=== PATIENT | male | born 1965 | race Caucasian/White ===

== ENCOUNTER 2017-01-29 08:41 | Observation (INO) ==
[2017-01-29 09:25] LABS: Basophils # 0.1 K/mcL (0.0-0.2); Basophils % 0.8 %; Eosinophils # 0.2 K/mcL (0.0-0.6); Eosinophils % 2.9 %; Hematocrit 42.8 % (37.5-50.1); Hemoglobin 14.6 g/dL (12.9-16.9); Immature Granulocytes % 0.5 % (0-4); Lymphocytes % 25.5 %; Mean Corpuscular HGB Conc 34.1 g/dL (31.6-35.5); Mean Corpuscular Hemoglobin 29.5 pg (28.0-33.3); Mean Corpuscular Volume 86.5 fL (83.0-100.0); Mean Platelet Volume 11.1 fL (9.4-12.4); Monocytes # 0.6 K/mcL (0.0-1.3); Monocytes % 7.7 %; Neutrophils # 4.9 K/mcL (1.6-8.9); Platelet Count 252 K/mcL (140-400); Red Blood Count 4.95 M/mcL (4.19-5.50); Red Cell Distribution Width 13.4 % (11.5-14.5); Segmented Neutrophils % 62.6 %
--- NOTE | 2017-01-29 09:28 | Emergency Department Note ---
Disposition Clinical Impression: Hematochezia Disposition: Admitted As Inpatient General Adult HPI - General Chief complaint: ED GI Bleed Stated complaint: Bloody Stool Time Seen by Provider: 01/29/17 08:48 Source: patient, family Limitations: no limitations Nursing Notes Reviewed: Yes Vital Signs Reviewed: Yes - History of Present Illness Pain Scale: 0 - Related Data Home Medications Medication Instructions Recorded Confirmed Allopurinol [Zyloprim] 300 mg PO QAM 07/19/15 01/29/17 Aspirin Enteric Coated [Aspirin EC] 81 mg PO QAM 07/19/15 01/29/17 Gemfibrozil [Lopid] 600 mg PO BID 07/19/15 01/29/17 Lisinopril [Zestril] 20 mg PO BID 07/19/15 01/29/17 glyBURIDE [GlyBURIDE] 2.5 mg PO HS 07/19/15 01/29/17 Warfarin [Coumadin] 10 mg PO SUMOTUWEFRSA 12/26/15 01/29/17 Warfarin Sodium 15 mg PO TH 01/15/16 01/29/17 Gabapentin [Neurontin] 300 mg PO TID 03/01/16 01/29/17 Enoxaparin [Lovenox] 100 mg SQ BID 01/15/17 01/29/17 Metformin HCl [Glucophage] 1,000 mg PO BID 01/29/17 01/29/17 Pantoprazole Sodium [Protonix] 40 mg PO DAILY 01/29/17 01/29/17 Previous Rx's Medication Instructions Recorded Docusate [Colace] 100 mg PO BID #30 capsule 01/15/17 Allergies Allergy/AdvReac Type Severity Reaction Status Date / Time Penicillins Allergy See Verified 01/29/17 13:14 Comments Past Medical History - Past Medical History Medical history: Reports: atrial fibrillation, diabetes, hyperlipidemia, hypertension, myocardial infarction Surgical history: Reports: other Psychiatric history: Reports: no psych history - Social History Smoking Status: Current every day smoker Smokeless Tobacco Status: No Alcohol use: Reports: rarely Drug use: Reports: none Physical Exam - General Limitations: no limitations General appearance: alert, in no apparent distress Course Vital Signs Temperature 97.7 F 01/29/17 08:42 Pulse Rate 70 01/29/17 08:42 Respiratory Rate 16 01/29/17 08:42 Blood Pressure 162/95 01/29/17 08:42 O2 Sat by Pulse Oximetry 97 01/29/17 08:42 Temperature 97.4 F L 01/29/17 15:13 Pulse Rate 58 01/29/17 15:13 Respiratory Rate 18 01/29/17 15:13 Blood Pressure 134/95 01/29/17 15:13 O2 Sat by Pulse Oximetry 97 01/29/17 15:15 Oxygen Delivery Oxygen Delivery Room Air Medical Decision Making - MDM Narrative Medical decision making narrative: I examined this patient and my medical decision-making was reviewed with the TRIAL PARALEGAL/PA/Advanced Practice Nurse/Resident Physician. I agree with the documented findings, disposition and treatment plan as described except to the extent set forth below. Patient was seen and evaluated by Dr. Florence and myself, I agree with his evaluation and management plan, I supervised the care of the patient and his stay. Patient presents today with GI bleeding he studies had lower GI bleed with blood and he noticed in the toilet been going on for 5 times. It colonoscopy done on the was done by Dr. Mcclendon they removed a polyp according to his records. He also had a cholecystectomy. He is on Coumadin had been bridged with Lovenox while he was off Coumadin during these procedures. And is now back on Coumadin. Check lab work on him, and then speak with GI he has nonsurgical abdomen so do not think he needs imaged at this time and then we will discuss best management for this bleeding he has. He is in agreement with this plan. 0907 hrs.: Patient had an EKG performed, shows a sinus rhythm, rate is 65, QRS is 101, QTC is 398, no signs of ischemia, risks and EKG from November and shows no changes except for rate. 1100 hrs.: Patient is guaiac positive grossly. Regarding a CT of the abdomen that we will talk about admission to the hospital. He is in agreement this plan. Abdomen/Pelvis CT 01/29/17 12:30 IMPRESSION: 1. No CT findings to account for rectal bleeding 2. Status post cholecystectomy with minimal residual postoperative changes 3. Hepatic steatosis 4. Nonobstructing bilateral nephrolithiasis D/ / Manjinder Wei MD / Manjinder Wei MD Interpreting Provider: Manjinder Wei MD 1338 hrs.: We will go ahead and bring him into the hospital now that his CT is back. Patient stable at this time. - Lab Data Result diagrams: 01/29/17 09:16 01/29/17 09:16 Lab Results 01/29/17 01/29/17 01/29/17 Range/Units 09:16 09:16 09:16 WBC 7.8 (4.3-11.1) K/mcL RBC 4.95 (4.19-5.50) M/mcL Hgb 14.6 (12.9-16.9) g/dL Hct 42.8 (37.5-50.1) % MCV 86.5 (83.0-100.0) fL MCH 29.5 (28.0-33.3) pg MCHC 34.1 (31.6-35.5) g/dL RDW 13.4 (11.5-14.5) % Plt Count 252 (140-400) K/mcL MPV 11.1 (9.4-12.4) fL Immature Gran % 0.5 (0-4) % Seg Neutrophils % 62.6 % Lymphocytes % 25.5 % Monocytes % 7.7 % Eosinophils % 2.9 % Basophils % 0.8 % Neutrophils # 4.9 (1.6-8.9) K/mcL Lymphocytes # 2.0 (0.6-4.6) K/mcL Monocytes # 0.6 (0.0-1.3) K/mcL Eosinophils # 0.2 (0.0-0.6) K/mcL Basophils # 0.1 (0.0-0.2) K/mcL PT 15.8 H (9.4-12.1) Seconds INR 1.5 APTT 43.8 H (26.0-36.0) Seconds Sodium (136-145) mEq/L Potassium (3.5-4.5) mEq/L Chloride (98-109) mEq/L Carbon Dioxide (19-29) mEq/L BUN (8-26) mg/dL Creatinine (0.72-1.25) mg/dL Est GFR ( Amer) (> 60) Est GFR (Non-Af Amer) (> 60) BUN/Creatinine Ratio (6-26) Glucose (70-99) mg/dL Calculated Osmolality (280-300) Calcium (8.6-10.8) mg/dL Troponin I 0.00 (0-0.03) ng/mL Stool Occult Blood (Negative) Blood Type Antibody Screen 01/29/17 01/29/17 01/29/17 Range/Units 09:16 09:16 11:15 WBC (4.3-11.1) K/mcL RBC (4.19-5.50) M/mcL Hgb (12.9-16.9) g/dL Hct (37.5-50.1) % MCV (83.0-100.0) fL MCH (28.0-33.3) pg MCHC (31.6-35.5) g/dL RDW (11.5-14.5) % Plt Count (140-400) K/mcL MPV (9.4-12.4) fL Immature Gran % (0-4) % Seg Neutrophils % % Lymphocytes % % Monocytes % % Eosinophils % % Basophils % % Neutrophils # (1.6-8.9) K/mcL Lymphocytes # (0.6-4.6) K/mcL Monocytes # (0.0-1.3) K/mcL Eosinophils # (0.0-0.6) K/mcL Basophils # (0.0-0.2) K/mcL PT (9.4-12.1) Seconds INR APTT (26.0-36.0) Seconds Sodium 137 (136-145) mEq/L Potassium 4.5 (3.5-4.5) mEq/L Chloride 105 (98-109) mEq/L Carbon Dioxide 22 (19-29) mEq/L BUN 21 (8-26) mg/dL Creatinine 0.74 (0.72-1.25) mg/dL Est GFR ( Amer) > 60 (> 60) Est GFR (Non-Af Amer) > 60 (> 60) BUN/Creatinine Ratio 28 H (6-26) Glucose 123 H (70-99) mg/dL Calculated Osmolality 288 (280-300) Calcium 9.7 (8.6-10.8) mg/dL Troponin I (0-0.03) ng/mL Stool Occult Blood Positive A (Negative) Blood Type O POSITIVE Antibody Screen NEGATIVE
[2017-01-29 09:29] LABS: INR 1.5; Prothrombin Time 15.8 Seconds (9.4-12.1)
[2017-01-29 09:31] LABS: Activated Partial Thrombo Time 43.8 Seconds (26.0-36.0)
[2017-01-29 09:39] LABS: BUN/Creatinine Ratio 28 (6-26); Blood Urea Nitrogen 21 mg/dL (8-26); Calcium 9.7 mg/dL (8.6-10.8); Carbon Dioxide 22 mEq/L (19-29); Chloride 105 mEq/L (98-109); Glucose 123 mg/dL (70-99); Osmolality,Calculated 288 (280-300); Potassium 4.5 mEq/L (3.5-4.5); Sodium 137 mEq/L (136-145); eGFR For African Americans > 60 (> 60); eGFR For Non-African Americans > 60 (> 60)
--- NOTE | 2017-01-29 09:49 | Emergency Department Note ---
Disposition Clinical Impression: Hematochezia Disposition: Admitted As Inpatient Referrals: Jakob Cason MD [Primary Care Provider] - Forms: ED Satisfaction Letter GI Bleed HPI - General Chief complaint: ED GI Bleed Stated complaint: Bloody Stool Time Seen by Provider: 01/29/17 08:48 Source: patient, family Limitations: no limitations - History of Present Illness HPI Narrative: Mr. Garibay, a 51yo male, presents from home by POV with CC: blood in bowel movement. Hx A. Fib s/p ablation x2, on coumadin which was discontinued for cholecystectomy in the beginning of the month and colonoscopy this week; was on lovenox in the interim. Colonoscopy last Sun. Sun restarted coumadin. Yest AM lower abdominal pain - upset stomach, nausea. Last night beginning appx midnight had 5x bright red stools with clotting with continued abdominal pain with nausea. Patient admits to mild lightheadedness with standing up and mild generalized fatigue. Denies chest pain, palpitations, weakness, chest pain, dizziness. PMH: a. fib PSH: ablation x2 Habits: Currently smoker - Related Data Home Medications Medication Instructions Recorded Confirmed Allopurinol [Zyloprim] 300 mg PO QAM 07/19/15 01/29/17 Aspirin Enteric Coated [Aspirin EC] 81 mg PO QAM 07/19/15 01/29/17 Gemfibrozil [Lopid] 600 mg PO BID 07/19/15 01/29/17 Lisinopril [Zestril] 20 mg PO BID 07/19/15 01/29/17 glyBURIDE [GlyBURIDE] 2.5 mg PO HS 07/19/15 01/29/17 Warfarin [Coumadin] 10 mg PO SUMOTUWEFRSA 12/26/15 01/29/17 Warfarin Sodium 15 mg PO TH 01/15/16 01/29/17 Gabapentin [Neurontin] 300 mg PO TID 03/01/16 01/29/17 Enoxaparin [Lovenox] 100 mg SQ BID 01/15/17 01/29/17 Metformin HCl [Glucophage] 1,000 mg PO BID 01/29/17 01/29/17 Pantoprazole Sodium [Protonix] 40 mg PO DAILY 01/29/17 01/29/17 Previous Rx's Medication Instructions Recorded Docusate [Colace] 100 mg PO BID #30 capsule 01/15/17 Allergies Allergy/AdvReac Type Severity Reaction Status Date / Time Penicillins Allergy See Verified 01/29/17 13:14 Comments All systems ED: reviewed and negative except as stated. Constitutional: Denies: fever, chills Eyes: Denies: vision change Cardiovascular: Denies: chest pain, palpitations, dyspnea on exertion, edema, syncope Respiratory: Denies: cough, dyspnea, wheezes, hemoptysis Gastrointestinal: Reports: nausea, diarrhea, hematochezia. Denies: abdominal pain, vomiting, constipation, hematemesis, melena Genitourinary: Denies: urgency, dysuria Neurological: Reports: as per HPI. Denies: headache, weakness, numbness, paresthesias, confusion, vertigo Hematological/Lymphatic: Reports: easy bleeding Past Medical History - Past Medical History Medical history: Reports: atrial fibrillation, diabetes, hyperlipidemia, hypertension, myocardial infarction Surgical history: Reports: other Psychiatric history: Reports: no psych history - Social History Smoking Status: Current every day smoker Smokeless Tobacco Status: No Alcohol use: Reports: rarely Drug use: Reports: none Physical Exam Vital signs reviewed and unremarkable. General: Patient is alert, oriented, and in no acute distress. HEENT: No facial asymmetry. Head is normocephalic and atraumatic. Trachea midline. Cardiovascular: Heart regular rate and rhythm without clicks, rubs, gallops, or murmurs. No JVD. PMI nondisplaced. No pedal edema. Bilateral radial posterior tibial pulses equal and 2/4. Respiratory: Symmetric chest rise with good respiratory effort. Bilateral breath sounds are clear without wheezing, crackles, or rhonchi. Abdomen: Bowel sounds present normoactive x-4 quadrants. Abdomen is soft, nondistended, and mildly diffusely tender. No rebound tenderness. No organomegaly noted. Rectal: Grossly positive red stool covering gloved finger. No hemorrhoids palpated. Psych: Patient's affect is appropriate for situation. - General Limitations: no limitations General appearance: alert, in no apparent distress Course Course Narrative: Patient denies need for analgesia this point; is pain-free until he performed an abdominal exam. Hb Hct stable and normal. VS stable. EKG normal sinus rhythm. Pertinent red blood per rectum on abdominal exam. Updated the patient on lab results and rectal exam. CT pending. Spoke with Dr. Mcclendon who is where the patient and will follow should he require hospital admission. CT of the pelvis unremarkable for free abdominal fluid or bowel perforation. Abdomen/Pelvis CT 01/29/17 12:30 IMPRESSION: 1. No CT findings to account for rectal bleeding 2. Status post cholecystectomy with minimal residual postoperative changes 3. Hepatic steatosis 4. Nonobstructing bilateral nephrolithiasis D/ / Manjinder Wei MD / Manjinder Wei MD Interpreting Provider: Manjinder Wei MD Spoke with the patient CT results. He agrees for admission. We will admit the patient to the service of Dr. Skinner; he agrees to accept the patient. Vital Signs Temperature 97.7 F 01/29/17 08:42 Pulse Rate 70 01/29/17 08:42 Respiratory Rate 16 01/29/17 08:42 Blood Pressure 162/95 01/29/17 08:42 O2 Sat by Pulse Oximetry 97 01/29/17 08:42 Temperature 97.7 F 01/29/17 08:42 Pulse Rate 62 01/29/17 14:17 Respiratory Rate 16 01/29/17 14:17 Blood Pressure 146/103 01/29/17 14:17 O2 Sat by Pulse Oximetry 97 01/29/17 14:17 Oxygen Delivery Oxygen Delivery Room Air GI Bleed - Lab Data Result diagrams: 01/29/17 09:16 01/29/17 09:16 Lab Results 01/29/17 01/29/17 01/29/17 Range/Units 09:16 09:16 09:16 WBC 7.8 (4.3-11.1) K/mcL RBC 4.95 (4.19-5.50) M/mcL Hgb 14.6 (12.9-16.9) g/dL Hct 42.8 (37.5-50.1) % MCV 86.5 (83.0-100.0) fL MCH 29.5 (28.0-33.3) pg MCHC 34.1 (31.6-35.5) g/dL RDW 13.4 (11.5-14.5) % Plt Count 252 (140-400) K/mcL MPV 11.1 (9.4-12.4) fL Immature Gran % 0.5 (0-4) % Seg Neutrophils % 62.6 % Lymphocytes % 25.5 % Monocytes % 7.7 % Eosinophils % 2.9 % Basophils % 0.8 % Neutrophils # 4.9 (1.6-8.9) K/mcL Lymphocytes # 2.0 (0.6-4.6) K/mcL Monocytes # 0.6 (0.0-1.3) K/mcL Eosinophils # 0.2 (0.0-0.6) K/mcL Basophils # 0.1 (0.0-0.2) K/mcL PT 15.8 H (9.4-12.1) Seconds INR 1.5 APTT 43.8 H (26.0-36.0) Seconds Sodium (136-145) mEq/L Potassium (3.5-4.5) mEq/L Chloride (98-109) mEq/L Carbon Dioxide (19-29) mEq/L BUN (8-26) mg/dL Creatinine (0.72-1.25) mg/dL Est GFR ( Amer) (> 60) Est GFR (Non-Af Amer) (> 60) BUN/Creatinine Ratio (6-26) Glucose (70-99) mg/dL Calculated Osmolality (280-300) Calcium (8.6-10.8) mg/dL Troponin I 0.00 (0-0.03) ng/mL Stool Occult Blood (Negative) Blood Type Antibody Screen 01/29/17 01/29/17 01/29/17 Range/Units 09:16 09:16 11:15 WBC (4.3-11.1) K/mcL RBC (4.19-5.50) M/mcL Hgb (12.9-16.9) g/dL Hct (37.5-50.1) % MCV (83.0-100.0) fL MCH (28.0-33.3) pg MCHC (31.6-35.5) g/dL RDW (11.5-14.5) % Plt Count (140-400) K/mcL MPV (9.4-12.4) fL Immature Gran % (0-4) % Seg Neutrophils % % Lymphocytes % % Monocytes % % Eosinophils % % Basophils % % Neutrophils # (1.6-8.9) K/mcL Lymphocytes # (0.6-4.6) K/mcL Monocytes # (0.0-1.3) K/mcL Eosinophils # (0.0-0.6) K/mcL Basophils # (0.0-0.2) K/mcL PT (9.4-12.1) Seconds INR APTT (26.0-36.0) Seconds Sodium 137 (136-145) mEq/L Potassium 4.5 (3.5-4.5) mEq/L Chloride 105 (98-109) mEq/L Carbon Dioxide 22 (19-29) mEq/L BUN 21 (8-26) mg/dL Creatinine 0.74 (0.72-1.25) mg/dL Est GFR ( Amer) > 60 (> 60) Est GFR (Non-Af Amer) > 60 (> 60) BUN/Creatinine Ratio 28 H (6-26) Glucose 123 H (70-99) mg/dL Calculated Osmolality 288 (280-300) Calcium 9.7 (8.6-10.8) mg/dL Troponin I (0-0.03) ng/mL Stool Occult Blood Positive A (Negative) Blood Type O POSITIVE Antibody Screen NEGATIVE
[2017-01-29] MEDS ORDERED: Acetaminophen 325 MG TABLET PO PRN (14:39)
[2017-01-29] MEDS ORDERED: Naloxone 0.4 MG/ML INJ IVP PRN (14:39)
--- NOTE | 2017-01-29 14:52 | Internal Med History&Physical ---
Date of Encounter: 01/29/17 Time of Encounter: 14:30 Assessment and Plan (1) Hematochezia Current visit: Yes Status: Acute Patient with acute bright red bleeding per rectum. Monitor blood counts. Consult GI. Moderate risk for complications. Underwent recent colonoscopy. We will place on PPI. Clear liquid diet only. (2) Atrial fibrillation Current visit: No Status: Resolved A. fib status post ablation. In sinus rhythm. Was being anticoagulated with Coumadin and being bridged with Lovenox. Urine had been stopped earlier this month for cholecystectomy and then patient underwent colonoscopy last week. He resumed Coumadin 2 days back. Qualifiers: Atrial fibrillation type: unspecified Qualified Code(s): I48.91 - Unspecified atrial fibrillation (3) DM (diabetes mellitus) Current visit: Yes Status: Chronic Monitor blood sugars. Sliding scale insulin. Qualifiers: Diabetes mellitus type: type 2 Diabetes mellitus complication status: without complication Diabetes mellitus shelter insulin use: without shelter use Qualified Code(s): E11.9 - Type 2 diabetes mellitus without complications (4) HLD (hyperlipidemia) Current visit: No Status: Chronic Continue statin. Qualifiers: Hyperlipidemia type: mixed hyperlipidemia Qualified Code(s): E78.2 - Mixed hyperlipidemia (5) HTN (hypertension) Current visit: Yes Status: Chronic Monitor blood pressure. Resume home medications. Qualifiers: Hypertension type: essential hypertension Qualified Code(s): I10 - Essential (primary) hypertension Internal Medicine - H&P: HPI Chief complaint: GI bleed Admitted From: Emergency Dept Plans for Post Hospital Care: Home History of present illness: Mr. Garibay is a 51 year old male patient with history of essential hypertension and hyperlipidemia, diabetes mellitus type 2, A. fib status post ablation on anticoagulation presented to the ER with episodes of bright red bleeding per rectum that began last night. Patient has had about 5 episodes so far. He has some cramping in his lower abdomen associated with it. He has not had this issue before. Patient is on Coumadin and is currently being bridged with Lovenox. He underwent a colonoscopy last week and a 10 mm polyp was resected. No active bleeding was identified. Patient also had gastric ulcers which were not bleeding. Denies any dizziness or lightheadedness. No palpitations. Patient has been in sinus rhythm since his ablation done last year. Past Med Surg Social Fam HX - Past Medical History Attestation: Yes The following information was validated with the patient. Source: patient Medical history: atrial fibrillation, diabetes, hyperlipidemia, hypertension, myocardial infarction Psychiatric history: no psych history - Past Surgical History Surgical History: other - Social History Smoking Status: Current every day smoker Smokeless Tobacco Status: No Alcohol use: rarely Drug use: none - Family History Mother Living Status: Hx Family Cardiac Disorders: Yes Hx Family Neurologic Disorders: Yes (CVA) Internal Medicine - H&P: Meds Allopurinol [Zyloprim] 300 mg PO QAM 07/19/15 [History] Aspirin Enteric Coated [Aspirin EC] 81 mg PO QAM 07/19/15 [History] Gemfibrozil [Lopid] 600 mg PO BID 07/19/15 [History] Lisinopril [Zestril] 20 mg PO BID 07/19/15 [History] glyBURIDE [GlyBURIDE] 2.5 mg PO HS 07/19/15 [History] Warfarin [Coumadin] 10 mg PO SUMOTUWEFRSA 12/26/15 [History] Warfarin Sodium 15 mg PO TH 01/15/16 [History] Gabapentin [Neurontin] 300 mg PO TID 03/01/16 [History] Docusate [Colace] 100 mg PO BID #30 capsule 01/15/17 [Rx] Enoxaparin [Lovenox] 100 mg SQ BID 01/15/17 [History] Metformin HCl [Glucophage] 1,000 mg PO BID 01/29/17 [History] Pantoprazole Sodium [Protonix] 40 mg PO DAILY 01/29/17 [History] Allergies Penicillins Allergy (Verified 01/29/17 13:14) See Comments PATIENT STATES HE IS UNSURE OF THE REACTION AND THAT IT IS A CHILDHOOD ALLERGY * All Systems PM: A 10-system review of systems was performed and is negative for pertinent findings except as documented above in the HPI. - Constitutional Constitutional: no chills, no fever(s), no night sweats - EENT Eyes: no change in vision, no discharge, no pain, no photophobia Ears: no ear discharge, no ear pain, no tinnitus Nose, mouth and throat: no dysphagia, no nasal discharge, no neck pain, no sore throat - Cardiovascular Cardiovascular ROS IM: no chest pain, no diaphoresis, no dyspnea, no lightheadedness, no palpitations, no syncope - Respiratory Respiratory: no cough, no dyspnea, no wheezing, no excessive phlegm production - Gastrointestinal Gastrointestinal: cramping, hematochezia - Musculoskeletal Musculoskeletal ROS IM: no numbness, no tingling - Integumentary Integumentary IM: no rash, no unusual bruising - Neurological Neurological ROS: no confusion, no convulsions, no focal weakness, no numbness, no tingling, no tremor(s) - Hematologic/Lymphatic Hematologic/Lymphatic: no easy bruising - Constitutional Vitals: Temp Pulse Resp BP Pulse Ox 97.7 F 62 18 146/90 97 01/29/17 08:42 01/29/17 14:17 01/29/17 14:49 01/29/17 14:49 01/29/17 14:17 General appearance: Present: cooperative, mild distress, A&O X 3, answers questions appropriately - Eye Eye exam: Present: EOMI, PERRL, conjuntiva pink, sclera anicteric - Neck Neck exam general surgery: Present: supple, trachea midline. Absent: lymphadenopathy - Respiratory Respiratory exam: Present: CTAB. Absent: accessory muscle use, rales, rhonchi, wheezes - Cardiovascular Cardiovascular exam: Present: RRR, +S1, +S2. Absent: diastolic murmur, gallop, rubs, systolic murmur - GI/Abdominal GI/Abdominal exam: Present: normal bowel sounds, soft, tenderness (Right lower quadrant), no peritoneal signs. Absent: distended - Extremities Exam Extremities exam: Present: warm, radial pulses palpable and symetrical. Absent : calf tenderness, cyanotic, pedal edema - Neurological Exam Neurological exam: Present: CN II-XII intact, oriented X3, no focal deficits. Absent: facial droop, speech deficit - Skin Skin exam: Present: dry, intact Internal Med - H&P Results - Labs CBC & Chem 7: 01/29/17 09:16 01/29/17 09:16 - Impressions Impressions Abdomen/Pelvis CT 01/29/17 12:30 IMPRESSION: 1. No CT findings to account for rectal bleeding 2. Status post cholecystectomy with minimal residual postoperative changes 3. Hepatic steatosis 4. Nonobstructing bilateral nephrolithiasis D/ / Manjinder Wei MD / Manjinder Wei MD Interpreting Provider: Manjinder Wei MD - Attending Attestation This document has been at least partially created by [employer] recognition technology by Dr. Skinner. Errors in grammar, wording or other phrases may exist. If errors are found after the documentation is signed, they will be addressed individually in the addendum section of this document when appropriate.
[2017-01-29] MEDS ORDERED: Dextrose Gel 15 GM PO PRN ×2 (15:06)
[2017-01-29] MEDS ORDERED: D5% in Water 1,000 ML IVC PRN (15:06)
[2017-01-29] MEDS ORDERED: *HR* Dextrose 50 % in Water (Syg) 50 ML SYRINGE IVP PRN (15:06)
[2017-01-29] MEDS: Gabapentin 300 MG CAPSULE PO SCH ×2 (15:49→20:19)
[2017-01-29] MEDS: 0.9 % Sodium Chloride 1,000 ML IVC SCH (15:50)
[2017-01-29] MEDS: Insulin LISPRO 300 UNITS/3 ML VIAL SQ SCH (16:34)
[2017-01-29] MEDS: Pantoprazole 40 MG VIAL IVP SCH (17:10)
[2017-01-29 18:24] LABS: Hemoglobin 14.8 g/dL (12.9-16.9)
[2017-01-29] MEDS ORDERED: SODIUM CHLORIDE/NAHCO3/KCL/PEG 4,000 ML SOLN.RECON PO ONE (18:37)
[2017-01-29] MEDS ORDERED: Polyethylene Glycol 3350 255 GM POWDER PO ONE (18:47)
[2017-01-29] MEDS: Lisinopril 20 MG TABLET PO SCH (20:19)
[2017-01-29] MEDS ORDERED: Insulin LISPRO 300 UNITS/3 ML VIAL SQ SCH (21:00)
[2017-01-30 01:31] LABS: Basophils # 0.1 K/mcL (0.0-0.2); Basophils % 0.7 %; Eosinophils # 0.3 K/mcL (0.0-0.6); Hematocrit 41.9 % (37.5-50.1); Hemoglobin 14.2 g/dL (12.9-16.9); Immature Granulocytes % 0.6 % (0-4); Lymphocytes # 3.8 K/mcL (0.6-4.6); Lymphocytes % 33.4 %; Mean Corpuscular HGB Conc 33.9 g/dL (31.6-35.5); Mean Corpuscular Hemoglobin 29.5 pg (28.0-33.3); Mean Corpuscular Volume 86.9 fL (83.0-100.0); Mean Platelet Volume 11.6 fL (9.4-12.4); Monocytes # 0.8 K/mcL (0.0-1.3); Monocytes % 7.5 %; Neutrophils # 6.1 K/mcL (1.6-8.9); Platelet Count 301 K/mcL (140-400); Red Blood Count 4.82 M/mcL (4.19-5.50); Red Cell Distribution Width 13.4 % (11.5-14.5); Segmented Neutrophils % 54.8 %
[2017-01-30] MEDS: 0.9 % Sodium Chloride 1,000 ML IVC SCH ×2 (01:39→11:41)
[2017-01-30 01:46] LABS: BUN/Creatinine Ratio 21 (6-26); Blood Urea Nitrogen 15 mg/dL (8-26); Calcium 9.4 mg/dL (8.6-10.8); Carbon Dioxide 19 mEq/L (19-29); Chloride 103 mEq/L (98-109); Glucose 128 mg/dL (70-99); Osmolality,Calculated 278 (280-300); Potassium 4.1 mEq/L (3.5-4.5); Sodium 133 mEq/L (136-145); eGFR For African Americans > 60 (> 60); eGFR For Non-African Americans > 60 (> 60)
[2017-01-30] MEDS: Pantoprazole 40 MG VIAL IVP SCH (05:33)
[2017-01-30] MEDS: Gabapentin 300 MG CAPSULE PO SCH ×2 (07:16→14:09)
[2017-01-30] MEDS: Lisinopril 20 MG TABLET PO SCH (07:16)
[2017-01-30] MEDS: Insulin LISPRO 300 UNITS/3 ML VIAL SQ SCH ×2 (07:30→11:30)
--- NOTE | 2017-01-30 10:16 | Anesthesia Evaluation PreOp ---
Date of Encounter: 01/30/17 Time of Encounter: 10:14 - Past History Planned Operation: colonoscopy (lower GI bleeding) Cardiac History: NC (20 years ago -- medically managed), HTN, Hyperlipidemia, Arrhythmia (A fib s/p 2 ablations; no A fib that he knows of since) Pulmonary History: Smoker [employer]AW [employer]ER History: Other (hx C-spine fusion) Other Medical History: Diabetes Type II (oral medications only) Anesthesia History: No Prior Anesthetic Complications Alcohol Use: rarely Drug use: none Medications and Allergies Allopurinol [Zyloprim] 300 mg PO QAM 07/19/15 [History] Aspirin Enteric Coated [Aspirin EC] 81 mg PO QAM 07/19/15 [History] Gemfibrozil [Lopid] 600 mg PO BID 07/19/15 [History] Lisinopril [Zestril] 20 mg PO BID 07/19/15 [History] glyBURIDE [GlyBURIDE] 2.5 mg PO HS 07/19/15 [History] Warfarin [Coumadin] 10 mg PO SUMOTUWEFRSA 12/26/15 [History] Warfarin Sodium 15 mg PO TH 01/15/16 [History] Gabapentin [Neurontin] 300 mg PO TID 03/01/16 [History] Docusate [Colace] 100 mg PO BID #30 capsule 01/15/17 [Rx] Enoxaparin [Lovenox] 100 mg SQ BID 01/15/17 [History] Metformin HCl [Glucophage] 1,000 mg PO BID 01/29/17 [History] Pantoprazole Sodium [Protonix] 40 mg PO DAILY 01/29/17 [History] Allergies Penicillins Allergy (Verified 01/29/17 13:14) See Comments PATIENT STATES HE IS UNSURE OF THE REACTION AND THAT IT IS A CHILDHOOD ALLERGY * - Meds/Allergy Pre-op Review Medications Reviewed: Yes Allergies Reviewed: Yes Beta Blockers on Current Med List: No Anesthesia Results - Labs 01/30/17 00:54 01/30/17 00:54 - Imaging EKG: report reviewed, image reviewed (SR) Anesthesia Exam Last Vital Signs Temp 97.8 F 01/30/17 10:05 Pulse 58 01/30/17 10:05 Resp 16 01/30/17 10:05 BP 114/72 01/30/17 10:05 Pulse Ox 94 01/30/17 10:05 Weight: 93 kg NPO (# of Hours): >> 8 hrs - HEENT Pupil (Motor): Pupils equal, EOMI Mallampati: II Teeth: Edentulous Oral Opening: Greater than 3 - STRAW [employer] LOC: Oriented [employer] Motor: Normal RUE, Normal LUE, Normal RLE, Normal LLE, Normal Face - Cardiac Rhythm: Regular Murmur: None - Pulmonary Breath Sounds: bilateral Clear Respiratory Effort: Symmetrical Anesthesia Assess/Plan ASA Score: 3 Modified Homer Scale for Level of Consciousness: Cooperative, oriented, and tranquil Anesthetic Plan: MAC Monitoring Plan: Standard Monitors Recovery Plan: PACU
[2017-01-30 12:08] VITALS: BP 107/60
--- NOTE | 2017-01-30 12:26 | Gastroenterology Consult Note ---
<BarksdaleSurjit lane Jose - Last Filed: 01/30/17 12:23> Date of Encounter: 01/30/17 Time of Encounter: 11:20 - Assessment and plan (1) Hematochezia Current Visit: Yes Status: Acute Assessment and plan: Colonoscopy completed 01/24/[address] Mcclendon which showed a 10 mm sessile serrated adenoma that was removed. Plan for repeat colonoscopy today as likely bleeding from polypectomy site. (2) Atrial fibrillation Current Visit: No Status: Resolved Qualifiers: Atrial fibrillation type: unspecified Qualified Code(s): I48.91 - Unspecified atrial fibrillation - Time Spent With Patient Total time spent is greater than 50% in coordination of care (as documented) at patient's floor/unit and/or counseling patient: GI History of Present Illness - Data of Consult Patient: known to practice within the last 3 years Consult date: 01/30/17 Requesting Physician: Jonny Skinner MD - Consult Narrative Reason for consult: Lower GI bleeding History of present illness: Mr. Garibay is a 51 year old male with PMHx of Afib s/p ablation on anticoagulation, DM, HLD, HTN, NM who presented to the ED with 5 episodes of BRBPR. He is on Coumadin and being bridged with Lovenox. Colonoscopy and EGD completed 01/24, with 10 mm polyp removed from asending colon and EGD with non- bleeding gastric ulcers. He reports lower abdominal cramping. He denies fever, chills, dizziness, chest pain, nausea, vomiting, or melena. CT A/P negative for finding to account for rectal bleeding. Procedures: Colonoscopy 01/24/2017 Dr. Mcclendon: one 10 mm sessile serrated adenoma in ascending colon. EGD 01/24/2017 Dr. Mcclendon: Small hiatal hernia, gastritis, nonbleeding gastric ulcers with no stigmata of bleeding NSAIDs: ASA Anticoagulation: Coumadin, Lovenox Past Med Surg Social Fam HX - Past Medical History Medical history: atrial fibrillation, diabetes, hyperlipidemia, hypertension, myocardial infarction Psychiatric history: no psych history - Past Surgical History Surgical History: other - Social History Smoking Status: Current every day smoker Smokeless Tobacco Status: No Alcohol use: rarely Drug use: none - Family History Mother Living Status: Hx Family Cardiac Disorders: Yes Hx Family Neurologic Disorders: Yes (CVA) - Gastrointestinal Gastrointestinal: Present: as per HPI - Constitutional Constitutional: as per HPI - EENT Eyes: as per HPI Ears: Present: as per HPI Nose, mouth and throat: Present: as per HPI - Cardiovascular Cardiovascular ROS: Present: as per HPI - Respiratory Respiratory IM: Present: as per HPI - Genitourinary Genitourinary: Absent: change in color, Urinary frequency - Neurological ROS Neurological GI: Present: as per HPI - Hematologic/Lymphatic Hematologic/Lymphatic pediatric: Present: as per HPI - Musculoskeletal Musculoskeletal ROS GI: Present: as per HPI - Integumentary Integumentary GI: Present: as per HPI - Psychiatric ROS Psychiatric GI: Present: as per HPI - Endocrine Endocrine IM: Present: as per HPI - Constitutional Vitals: Temp Pulse Resp BP Pulse Ox 98.3 F 63 16 107/60 97 01/30/17 11:40 01/30/17 11:40 01/30/17 11:40 01/30/17 11:40 01/30/17 11:40 General appearance: Present: cooperative, A&O X 3, no acute distress, answers questions appropriately - Head Head exam: Present: atraumatic, normocephalic - Eye Eye exam: Present: normal appearance, sclera anicteric - ENT ENT exam: Present: mucous membranes moist - Neck Neck exam general surgery: Present: normal inspection, trachea midline - Respiratory Respiratory exam: Present: CTAB. Absent: rales, rhonchi - Cardiovascular Cardiovascular exam: Present: RRR, +S1, +S2 - GI/Abdominal GI/Abdominal exam: Present: soft, tenderness (RLQ), no peritoneal signs. Absent : distended, firm, guarding - Rectal Rectal exam: Present: deferred - Extremities Exam Extremities exam: Present: warm - Neurological Exam Neurological exam: Present: no focal deficits - Psychiatric Psychiatric exam: Present: normal affect, normal mood - Skin Skin exam: Present: dry, intact, normal color, warm Results - Labs CBC & Chem 7: 01/30/17 00:54 01/30/17 00:54 Labs: Last Result Calcium 9.4 mg/dL (8.6-10.8) 01/30/17 00:54 Troponin I 0.00 ng/mL (0-0.03) 01/29/17 09:16 Stool Occult Blood Positive (Negative) A 01/29/17 11:15 Entire Visit Hgb 14.2 g/dL (12.9-16.9) 01/30/17 00:54 Hct 41.9 % (37.5-50.1) 01/30/17 00:54 PT 15.8 Seconds (9.4-12.1) H 01/29/17 09:16 - ABG ABG results: PT/INR, D-dimer PT 15.8 Seconds (9.4-12.1) H 01/29/17 09:16 Consult Discharge Plan - Plan Instructions: Diabetes Mellitus Type 2 in Adults (DC) Additional Instructions: Follow-up with cardiology in 1-2 weeks Follow-up with GI in 1-2 weeks Referrals: Jakob Cason MD [Primary Care Provider] - 02/01/17 10:45 am (One week) Jose Castillo DO [Partnered Physician] - (Office will call patient at home with date and time. Thank you) Andrews Mcclendon MD [Partnered Physician] - (Office will call patient at home with date and time. Thank you) <Andrews Mcclendon - Last Filed: 01/30/17 14:49> Date of Encounter: 01/30/17 Time of Encounter: 11:00 - Time Spent With Patient Total time spent is greater than 50% in coordination of care (as documented) at patient's floor/unit and/or counseling patient: GI History of Present Illness - Data of Consult Requesting Physician: Jonny Skinner MD - Consult Narrative History of present illness: Mr. Garibay is a 51 year old male - Constitutional Vitals: Temp Pulse Resp BP Pulse Ox 98.3 F 63 16 107/60 97 01/30/17 11:40 01/30/17 11:40 01/30/17 11:40 01/30/17 11:40 01/30/17 11:40 Results - Labs CBC & Chem 7: 01/30/17 00:54 01/30/17 00:54 Labs: Last Result Calcium 9.4 mg/dL (8.6-10.8) 01/30/17 00:54 Troponin I 0.00 ng/mL (0-0.03) 01/29/17 09:16 Stool Occult Blood Positive (Negative) A 01/29/17 11:15 Entire Visit Hgb 14.2 g/dL (12.9-16.9) 01/30/17 00:54 Hct 41.9 % (37.5-50.1) 01/30/17 00:54 PT 15.8 Seconds (9.4-12.1) H 01/29/17 09:16 - ABG ABG results: PT/INR, D-dimer PT 15.8 Seconds (9.4-12.1) H 01/29/17 09:16 - Attending Attestation I examined this patient and my medical decision-making was reviewed with the [employer] F[employer]OR RUNNER/PA/Advanced Practice Nurse/Resident Physician. I agree with the documented findings, disposition and treatment plan as described except to the extent set forth below.
--- NOTE | 2017-01-30 13:21 | Discharge Summary ---
Date of Encounter: 01/30/17 Time of Encounter: 13:19 - Discharge Diagnosis (1) Hematochezia Priority: Primary Status: Acute (2) Atrial fibrillation Priority: Secondary Status: Resolved Qualifiers: Atrial fibrillation type: unspecified Qualified Code(s): I48.91 - Unspecified atrial fibrillation (3) DM (diabetes mellitus) Priority: Secondary Status: Chronic Qualifiers: Diabetes mellitus type: type 2 Diabetes mellitus complication status: without complication Diabetes mellitus manager terminal insulin use: without manager terminal use Qualified Code(s): E11.9 - Type 2 diabetes mellitus without complications (4) HLD (hyperlipidemia) Priority: Secondary Status: Chronic Qualifiers: Hyperlipidemia type: mixed hyperlipidemia Qualified Code(s): E78.2 - Mixed hyperlipidemia (5) HTN (hypertension) Priority: Secondary Status: Chronic Qualifiers: Hypertension type: essential hypertension Qualified Code(s): I10 - Essential (primary) hypertension - Discharge Medications Home Medications: Allopurinol [Zyloprim] 300 mg PO QAM 07/19/15 [History] Aspirin Enteric Coated [Aspirin EC] 81 mg PO QAM 07/19/15 [History] Gemfibrozil [Lopid] 600 mg PO BID 07/19/15 [History] Lisinopril [Zestril] 20 mg PO BID 07/19/15 [History] glyBURIDE [GlyBURIDE] 2.5 mg PO HS 07/19/15 [History] Gabapentin [Neurontin] 300 mg PO TID 03/01/16 [History] Docusate [Colace] 100 mg PO BID #30 capsule 01/15/17 [Rx] Metformin HCl [Glucophage] 1,000 mg PO BID 01/29/17 [History] Pantoprazole Sodium [Protonix] 40 mg PO DAILY 01/29/17 [History] Allergies/Adverse Reactions: Allergies Penicillins Allergy (Verified 01/29/17 13:14) See Comments PATIENT STATES HE IS UNSURE OF THE REACTION AND THAT IT IS A CHILDHOOD ALLERGY * Date of admission: 01/29/17 14:31 Primary care physician: Jakob Cason MD Consults: 01/29/17 14:42 Consult to Gastroenterology [CONS] Routine Consulting Provider: Gastroenterology Cathy Reason for Consult: Lower gi bleed recent colonoscopy and Upper gi endoscopy Call Completed: No - Patient Status Disposition: Home, Self-Care Condition: Good Functional capacity at discharge: independent ambulation Overall status at discharge: patient is progressing back to baseline - Discharge Instructions Instructions: Diabetes Mellitus Type 2 in Adults (DC) Follow Up With: Jakob Cason MD [Primary Care Provider] - (One week) Additional Instructions: Follow-up with cardiology in 1-2 weeks Follow-up with GI in 1-2 weeks - Diet and Activity Activity: increase activity as tolerated Diet: diabetic diet, low fat, low cholesterol, low salt diet Hospital course: Mr. Garibay is a 51 year old male patient with history of essential hypertension , atrial fibrillation on anticoagulation currently with Lovenox and Coumadin presented to the GI bleed. He underwent a colonoscopy 6 days back when a 10 mm polyp was removed. Patient had bright red bleeding but his hemoglobin counts were stable. GI was consulted and they proceeded with a repeat colonoscopy. This revealed the presence of mucosal ulceration at site of polypectomy with old blood found in rectum. This was clipped. Patient is tolerating diet and will be discharged home per GI recommendations. He can follow up with GI for further management. For now we are holding his anticoagulation. Patient has been in normal sinus rhythm since his ablation 1 year back. He can follow up with cardiology for further recommendations regarding resumption of anticoagulation. - Time Spent with Patient Total time spent providing and/or coordinating discharge services: Greater than 30 minutes (30 min) - Constitutional Vitals: Temp Pulse Resp BP Pulse Ox 98.3 F 63 16 107/60 97 01/30/17 11:40 01/30/17 11:40 01/30/17 11:40 01/30/17 11:40 01/30/17 11:40 General appearance: Present: cooperative, A&O X 3, no acute distress, answers questions appropriately - Respiratory Respiratory exam: Present: CTAB. Absent: accessory muscle use, rales, rhonchi, wheezes - Cardiovascular Cardiovascular exam: Present: RRR, +S1, +S2. Absent: diastolic murmur, gallop, rubs, systolic murmur - GI/Abdominal GI/Abdominal exam: Present: normal bowel sounds, soft, no peritoneal signs. Absent: distended, tenderness - Attending Attestation This document has been at least partially created by [employer] recognition technology by Dr. Skinner. Errors in grammar, wording or other phrases may exist. If errors are found after the documentation is signed, they will be addressed individually in the addendum section of this document when appropriate.
[2017-01-30] MEDS ORDERED: *HR* Propofol 200 MG/20 ML VIAL IVP ONE (14:34)
--- NOTE | 2017-02-01 15:37 | Electrocardiograph Report ---
[facility] Test Date: 2017-01-29 Pat Name: Juan Antonoi Garibay Department: 105 Room: 3A31 Gender: M Baton Twirler: [facility] : 1965 Requested By: Lc Florence Order Number: [id number] Reading MD: Shawn Owens MD Measurements Intervals [place] Rate: 65 P: 48 ME: 167 QRS: 7 QRSD: 101 T: -5 QT: 386 QTc: 398 Interpretive Statements SINUS RHYTHM wnl Electronically Signed On 02-01-2017 15:35:44 EDT by Shawn Owens MD
== END 2017-01-30 14:35 | disposition home or self-care (01) ==
LOC: EMEROO 08:41 → 3ANU 08:41 → SUATTDRO 14:31 → 3ANU 14:40
PROVIDERS: ADMIT Internal Medicine; ATTEND Internal Medicine
PROC: ENDOCCB (2017-01-30 10:15)

== ENCOUNTER 2019-08-31 19:59 | Observation (INO) ==
[2019-08-31] MEDS ORDERED: Aspirin 81 MG TAB.CHEW PO ONE (20:08)
[2019-08-31] MEDS ORDERED: 0.9 % Sodium Chloride 1,000 ML IVC ONE ×2 (20:32→20:36)
[2019-08-31 20:37] LABS: Bilirubin,Urine Negative (Negative); Blood,Urine Negative (Negative); Clarity,Urine Clear (Clear); Color,Urine Yellow (Yellow); Glucose,Urine (UA) >=1000 mg/dL (Normal); Ketones,Urine Negative (Negative); Leukocyte Esterase,Urine Negative (Negative); Nitrite,Urine Negative (Negative); Protein,Urine 30 mg/dL (Neg-Trace); Specific Gravity,Urine > 1.030 (1.010-1.025); Urobilinogen,Urine Normal (Normal)
[2019-08-31 20:39] LABS: Eosinophils % 2.6 %; Hematocrit 48.2 % (37.5-50.1); Hemoglobin 17.5 g/dL (12.9-16.9); Immature Granulocytes % 0.7 % (0-4); Lymphocytes % 26.2 %; Mean Corpuscular HGB Conc 36.3 g/dL (31.6-35.5); Mean Corpuscular Hemoglobin 30.5 pg (28.0-33.3); Mean Corpuscular Volume 84.1 fL (83.0-100.0); Mean Platelet Volume 11.3 fL (9.4-12.4); Monocytes % 10.5 %; Platelet Count 215 K/mcL (140-400); Red Blood Count 5.73 M/mcL (4.19-5.50); Red Cell Distribution Width 12.1 % (11.5-14.5); Segmented Neutrophils % 59.5 %; White Blood Count 11.1 K/mcL (4.3-11.1)
[2019-08-31 20:40] LABS: VBG HCO3 25 mEq/L (21-27); VBG PCO2 40 mmHg (41-51); VBG PO2 92 mmHg (25-50)
[2019-08-31 20:40] LABS: Basophils # 0.1 K/mcL (0.0-0.2); Basophils % 0.5 %; Eosinophils # 0.3 K/mcL (0.0-0.6); Lymphocytes # 2.9 K/mcL (0.6-4.6); Monocytes # 1.2 K/mcL (0.0-1.3); Neutrophils # 6.6 K/mcL (1.6-8.9)
[2019-08-31 20:42] LABS: INR 0.9; Prothrombin Time 10.6 Seconds (9.4-12.1)
[2019-08-31 20:43] LABS: WBC,Urine 0-3 per hpf (0-3)
[2019-08-31 20:45] LABS: Activated Partial Thrombo Time 32.3 Seconds (26.0-36.0)
[2019-08-31 21:00] LABS: Alanine Aminotransferase 27 Units/L (7-52); Albumin 4.3 g/dL (3.5-5.7); Albumin/Globulin Ratio 1.6 (1.1-2.2); Alkaline Phosphatase 128 Units/L (34-104); Aspartate Amino Transferase 11 Units/L (13-39); BUN/Creatinine Ratio 21 (6-26); Bilirubin,Indirect 0.5 mg/dL (0.0-1.0); Bilirubin,Total 0.5 mg/dL (0.3-1.0); Blood Urea Nitrogen 17 mg/dL (6-20); Calcium 9.4 mg/dL (8.6-10.3); Carbon Dioxide 23 mEq/L (23-29); Chloride 97 mEq/L (98-107); Globulin 2.7 g/dL (2.4-3.5); Glucose 385 mg/dL (70-105); Lipase 24 Units/L (11-82); Osmolality,Calculated 285 (280-300); Potassium 4.1 mEq/L (3.5-5.1); Sodium 129 mEq/L (136-145); Troponin I < 0.03 ng/mL (< 0.04); eGFR For African Americans > 60 (> 60); eGFR For Non-African Americans > 60 (> 60)
[2019-09-01] MEDS ORDERED: Naloxone 0.4 MG/ML INJ IVP PRN (05:12)
[2019-09-01] MEDS ORDERED: *HR* Heparin 5,000 UNIT/ML VIAL IVP PRN ×2 (05:15)
[2019-09-01] MEDS ORDERED: *HR* Heparin 5,000 UNIT/ML VIAL IVP ONE (05:15)
[2019-09-01] MEDS ORDERED: *HR* Dextrose 50 % in Water (Syg) 50 ML SYRINGE IVP PRN (05:16)
[2019-09-01] MEDS ORDERED: D5% in Water 1,000 ML IVC PRN (05:16)
[2019-09-01] MEDS ORDERED: Dextrose Gel 15 GM/37.5 ML TUBE PO PRN ×2 (05:16)
[2019-09-01] MEDS: Insulin LISPRO 300 UNITS/3 ML VIAL SQ SCH ×3 (06:06→17:55)
[2019-09-01] MEDS: Heparin 25,000 UNIT/250 ML D5W 25,000 UNIT/250 ML IV.SOLN IVC SCH ×2 (06:18→23:14)
[2019-09-01] MEDS: Nicotine 21 MG PATCH.TD24 TD SCH (06:18)
[2019-09-01 06:33] LABS: Hematocrit 46.3 % (37.5-50.1); Hemoglobin 16.3 g/dL (12.9-16.9); Mean Corpuscular HGB Conc 35.2 g/dL (31.6-35.5); Mean Corpuscular Hemoglobin 30.9 pg (28.0-33.3); Mean Corpuscular Volume 87.9 fL (83.0-100.0); Mean Platelet Volume 11.9 fL (9.4-12.4); Platelet Count 193 K/mcL (140-400); Red Blood Count 5.27 M/mcL (4.19-5.50); White Blood Count 10.8 K/mcL (4.3-11.1)
[2019-09-01 06:36] LABS: Heparin anti-factor XA UFH 0.02 IU/mL (0.30-0.70); Prothrombin Time 10.9 Seconds (9.4-12.1)
[2019-09-01 06:52] LABS: BUN/Creatinine Ratio 21 (6-26); Blood Urea Nitrogen 14 mg/dL (6-20); Carbon Dioxide 26 mEq/L (23-29); Chloride 97 mEq/L (98-107); Glucose 348 mg/dL (70-105); Osmolality,Calculated 290 (280-300); Sodium 133 mEq/L (136-145); eGFR For African Americans > 60 (> 60); eGFR For Non-African Americans > 60 (> 60)
[2019-09-01 09:53] LABS: Estimated Average Glucose 260 mg/dl
[2019-09-01] MEDS ORDERED: Perflutren Lipid Microsphere 1.3 ML in 0.9 % Sodium Chloride 8.7 ML IVP ONE (16:14)
[2019-09-02] MEDS: Insulin LISPRO 300 UNITS/3 ML VIAL SQ SCH ×3 (00:09→12:16)
[2019-09-02] MEDS ORDERED: Regadenoson 0.4 MG/5 ML SYRINGE IVP ONE (06:16)
[2019-09-02] MEDS: Nicotine 21 MG PATCH.TD24 TD SCH (09:33)
[2019-09-02 10:12] VITALS: BP 151/94
[2019-09-02] MEDS ORDERED: FLU Vac QV 19-20 (6Month+)/PF 0.5 ML SYRINGE IM ONE (13:15)
== END 2019-09-02 16:30 | disposition home or self-care (01) ==
LOC: EMEROOARM 19:59 → 3BNU 19:59 → SUATTDRO 23:01 → 2ANU 23:15 → 3ANU 23:54 → 3NENU 09-01 05:17
PROVIDERS: ADMIT Internal Medicine; ATTEND Internal Medicine